=== PATIENT | male | born 1970 | race Caucasian/White ===

== ENCOUNTER → 2021-07-08 | Outpatient (CLI) | payer OTHER ==
[~2021-07-08] MED LIST: BARIUM SULFATE 60% 355 ML SUSP PO ONE; BARIUM SULFATE 98% 135 ML SUSP PO ONE
--- NOTE | 2021-07-08 11:30 | RAD ---
Single contrast Upper GI study 07/08/2021 CLINICAL HISTORY: History of hiatal hernia. Regurgitation. TECHNIQUE: A single contrast upper GI study was performed under fluoroscopic control. A single contra st study was performed due to the patient's limited mobility. The total fluoroscopic time for this st udy is 2.9 minutes. 9 digital spot radiographs were obtained. FINDINGS: Two AP supine digital radiographs abdomen/pelvis were obtained as [facility] radiographs. These demonstrate a moderate amount of stool throughout the colon. The abdominal bowel gas pattern is nonob structive. No radiopaque calculus is seen. Very mild S-shaped curvature of the thoracolumbar spine is seen. Degenerative changes are seen involving lower thoracic and throughout the lumbar spine. The mucosal pattern of the esophagus, stomach and duodenum is within normal limits. No area of ulcera tion is seen. Tertiary contractions of esophagus are seen consistent with moderate dysmotility. There is a moderate sized sliding hiatal hernia. Moderate to severe gastroesophageal reflux is seen to the level of the upper thoracic esophagus. IMPRESSION: 1. Moderate esophageal dysmotility. 2. Moderate-sized sliding hiatal hernia. Moderate to severe gastroesophageal reflux. Electronically signed by: Xavier Palencia MD (07/08/2021 11:28 AM) [id number]
== END ==
LOC: DXRAD 09:01
PROVIDERS: ATTEND Internal Medicine Gastroenterology
DX: K21.9 Gastro-esophageal reflux disease without esophagitis (principal); K44.9 Diaphragmatic hernia without obstruction or gangrene; R11.10 Vomiting, unspecified
CPT/HCPCS: 74240

== ENCOUNTER 2021-07-17 19:38 | Emergency (ER) | payer OTHER ==
[~2021-07-17] VITALS: Ht 170.2 cm; Wt 88.0 kg
[2021-07-17] MEDS ORDERED: 0.9 % SODIUM CHLORIDE 10 ML DISP.SYRIN. IV PRN (20:15)
--- NOTE | 2021-07-17 20:22 | PHYS DOC ---
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 Dad states patient called and reportedly had a subjective fever today and had fallen. Dad reports when he got patients home patient had passed out. Both dad and patient are poor historians. Dad states Patient had upper GI series done by Dr. Green last week and was noted to have a hiatal hernia and they were referred to a general surgeon. Patient reports nausea and vomiting today though father states patient has chronic nausea and vomiting from gastroparesis. Patient reports receiving Moderna covid vaccines. Dad states patient was at a wedding a week ago in [facility] [place] (DANII BECKMAN APRN) Review of Systems Review of Systems Constitutional: reports fever Eyes: Denies change in visual acuity, redness, or eye pain [] HENT: Denies nasal congestion or sore throat [] Respiratory: Denies cough or shortness of breath [] Cardiovascular: No additional information not addressed in HPI [] GI: Reports abdominal pain, nausea, vomiting, denies bloody stools or diarrhea [] : Denies dysuria or hematuria [] Musculoskeletal: Reports falling, Denies back pain or joint pain [] Integument: Denies rash or skin lesions [] Neurologic: Denies headache, focal weakness or sensory changes [] All other systems were reviewed and found to be within normal limits, except as documented in this note. (DANII BECKMAN APRN) Allergies Allergies Allergies Coded Allergies Type Severity Reaction Last Updated Verified No Known Drug Allergies 07/08/21 No (DANII BECKMAN APRN) Physical Exam Physical Exam Constitutional: Patient appears ill HENT: Normocephalic, atraumatic, bilateral external ears normal, oropharynx moist, no oral exudates, nose normal. [] Eyes: PERRLA, EOMI, conjunctiva normal, no discharge. [] Neck: Normal range of motion, no tenderness, supple, no stridor. [] Cardiovascular: Tachycardic, diaphoretic Lungs & Thorax: Bilateral breath sounds clear to auscultation [] Abdomen: Bowel sounds normal, soft, diffuse tenderness throughout the abdomen, no masses, no pulsatile masses. [] Skin: Right scapula with a bruise, right helix with laceration approx. 1 cm Back: No tenderness, no CVA tenderness. [] Extremities: No tenderness, no cyanosis, no clubbing, ROM intact, no edema. [] Neurologic: Alert and oriented X 3, normal motor function, normal sensory function, no focal deficits noted. Cranial nerves II through XII intact Psychologic: Affect normal, judgement normal, mood normal. [] (DANII BECKMAN APRN) EKG EKG [address] Lopez sinus tachycardia HR 120 no STEMI[] (DANII BECKMAN APRN) Radiology/Procedures Radiology/Procedures []PROCEDURE: PORTABLE CHEST 1V XR CHEST 1V Clinical History: Reason: fever / Spl. Instructions: / History: Technique: AP view of the chest was obtained at 07/17/2021 8:21 PM. Comparison: None. Findings: The cardiomediastinal silhouette is normal. The pulmonary vasculature is normal. The lungs and pleural margins are clear. Impression: No evidence of an acute cardiopulmonary process. Electronically signed by: Najma Gonsalves III, MD (07/17/2021 9:09 PM) [facility] DICTATED AND SIGNED BY: NAJMA GONSALVES III, MD DATE: 07/17/212108 CC: JACQUIE LOPEZ MD; ROSE QUINTANA MD; DANII BECKMAN APRN ~MTH0 0 PROCEDURE: CT HEAD AND CERVICAL SPINE WO CT Head W/O Contrast: History: Pain status post fall Comparison: none Axial images were obtained without contrast. The nicholson and white matter appears normal and symmetrical for the patients age. There is no mass effect, extraaxial fluid collections or hydrocephalus. There i s no gross bleed. There is no focal loss of nicholson-white matter distinction to suggest acute ischemia, i.e. stroke. Impression: No acute findings. End impression CT C-Spine without contrast: Clinical History: Reason: fall / Spl. Instructions: / History: Technique: Axial helical images of the cervical spine were obtained without contrast, axial coronal and sagittal reconstruction was performed. Findings: There is no loss of vertebral body stature. There is no prevertebral soft tissue swelling. The vertebral bodies are well aligned. The C1-C2 relationship is normal. The visualized osseous structures appear normal. Evaluation of the central canal is limited without contrast. There is multiple posterior disc bulges resulting in flattening of the thecal sac. There does not appear to be gross flattening of the cervical cord. There is moderate narrowing of multiple neuroforamen. Impression: No acute findings. Clinical correlation suggested. PQRS Compliance Statement: One or more of the following individualized dose reduction techniques were utilized for this examination: 1. Automated exposure control 2. Adjustment of the mA and/or kV according to patient size 3. Use of iterative reconstruction technique Electronically signed by: Najma Gonsalves III, MD (07/17/2021 8:56 PM) [facility] DICTATED AND SIGNED BY: NAJMA GONSALVES III, MD DATE: 07/17/212046 CC: JACQUIE LOPEZ MD; ROSE QUINTANA MD; DANII BECKMAN APRN ~MTH0 0 (DANII BECKMAN APRN) Heart Score C/O Chest Pain: N/A Risk Factors: Risk Factors: DM, Current or recent (<one month) smoker, HTN, HLP, family history of CAD, obesity. Risk Scores: Risk Factors: DM, Current or recent (<one month) smoker, HTN, HLP, family history of CAD, obesity. (DANII BECKMAN APRN) Course & Med Decision Making Course & Med Decision Making Pertinent Labs and Imaging studies reviewed. (See chart for details) This is an ill-appearing 50-year-old male patient who presents to the ED today with father, father states patient had a subjective fever and also fell down today. Father states when he got to patient's house patient was " passed out" Patient is tachycardic on arrival to the ED with heart rate in the low 120s. Also noted to be diaphoretic and hypoxic. 2200 care transferred to (DANII BECKMAN APRN) Course & Med Decision Making Patient care handed off to me at checkout pending work-up. Patient appears ill. Vital signs notable for tachycardia, tachypnea and and in need of 2 L nasal cannula to bring oxygen saturations around 95%. Laboratory analysis notable for neutrophilic leukocytosis, elevated creatinine and elevated lactate. Continued on IV fluid resuscitation, started on broad-spectrum antibiotics after discussing possible etiology of discitis with pharmacy giving Levaquin and vancomycin. Discussed all findings with family and recommended admission however [facility] without beds and family stated they would like to be admitted to [facility]. 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 (JACQUIE LOPEZ MD) Dragon Disclaimer Dragon Disclaimer This electronic medical record was generated, in whole or in part, using a voice recognition dictation system. (DANII BECKMAN APRN) Departure Departure: Impression: Primary Impression: Fever Additional Impressions: Tachycardia Sepsis Discitis Compression fracture Disposition: 02 [facility]ORT TERM [facility]OSPITAL Condition: STABLE Referrals: ROSE QUINTANA MD (PCP) Problem Qualifiers DANII BECKMAN APRN Jul 17, 2021 20:22 JACQUIE LOPEZ MD Jul 17, 2021 23:57
[2021-07-17] MEDS ORDERED: IV NORMAL SALINE 1,000ML 1,000 ML IV ONE ×3 (20:30→21:45)
[2021-07-17] MEDS ORDERED: ACETAMINOPHEN 500 MG TABLET PO ONE (20:30)
[2021-07-17] MEDS ORDERED: ONDANSETRON PF 4 MG/2 ML VIAL. IVP ONE (20:45)
[2021-07-17 20:52] LABS: HEMATOCRIT 41.1 % (39.0-53.0); HEMOGLOBIN 13.6 g/dL (13.0-17.5); LYMPH % 8 % (24-48); MEAN CORPUSCULAR HEMOGLOBIN 30 pg (25-35); MEAN CORPUSCULAR HGB CONC 33 g/dL (31-37); MEAN CORPUSCULAR VOLUME 91 fL (79-100); MONO % 7 % (0-9); NEUT % 85 % (31-73); PLATELET COUNT 306 x10^3/uL (140-400); RED BLOOD COUNT 4.51 x10^6/uL (4.30-5.70); RED CELL DISTRIBUTION WIDTH 13.3 % (11.5-14.5)
[2021-07-17 20:53] LABS: BASO % 0 % (0-3); EOS # 0.1 x10^3/uL (0.0-0.7); EOS % 0 % (0-3); LYMPH # 1.2 x10^3/uL (1.0-4.8); NEUT # 12.7 x10^3uL (1.8-7.7)
--- NOTE | 2021-07-17 20:58 | RAD ---
CT Head W/O Contrast: History: Pain status post fall Comparison: none Axial images were obtained without contrast. The nicholson and white matter appears normal and symmetrical for the patients age. There is no mass effe ct, extraaxial fluid collections or hydrocephalus. There is no gross bleed. There is no focal loss of nicholson-white matter distinction to suggest acute ischemia, i.e. stroke. Impression: No acute findings. End impression CT C-Spine without contrast: Clinical History: Reason: fall / Spl. Instructions: / History: Technique: Axial helical images of the cervical spine were obtained without contrast, axial coronal and sagittal reconstruction was performed. Findings: There is no loss of vertebral body stature. There is no prevertebral soft tissue swelling. The vert ebral bodies are well aligned. The C1-C2 relationship is normal. The visualized osseous structures a ppear normal. Evaluation of the central canal is limited without contrast. There is multiple posterio r disc bulges resulting in flattening of the thecal sac. There does not appear to be gross flattening of the cervical cord. There is moderate narrowing of multiple neuroforamen. Impression: No acute findings. Clinical correlation suggested. PQRS Compliance Statement: One or more of the following individualized dose reduction techniques were utilized for this examinat ion: 1. Automated exposure control 2. Adjustment of the mA and/or kV according to patient size 3. Use of iterative reconstruction technique Electronically signed by: Keith Carlin III, MD (07/17/2021 8:56 PM) [facility]
[2021-07-17 20:59] LABS: CALCIUM 9.5 mg/dL (8.5-10.1); CREATININE 1.9 mg/dL (0.7-1.3); GFR 37.7; POTASSIUM 4.6 mmol/L (3.5-5.1)
[2021-07-17 21:05] LABS: ALBUMIN 4.3 g/dL (3.4-5.0); ALBUMIN/GLOBULIN RATIO 1.1 (1.0-1.7); MAGNESIUM 2.1 mg/dL (1.8-2.4); TOTAL BILIRUBIN 0.4 mg/dL (0.2-1.0); TOTAL PROTEIN 8.1 g/dL (6.4-8.2)
--- NOTE | 2021-07-17 21:12 | RAD ---
XR CHEST 1V Clinical History: Reason: fever / Spl. Instructions: / History: Technique: AP view of the chest was obtained at 07/17/2021 8:21 PM. Comparison: None. Findings: The cardiomediastinal silhouette is normal. The pulmonary vasculature is normal. The lungs and pleura l margins are clear. Impression: No evidence of an acute cardiopulmonary process. Electronically signed by: Keith Carlin III, MD (07/17/2021 9:09 PM) [facility]
[2021-07-17] MEDS ORDERED: IOHEXOL 300 MG/ML 75 ML VIAL. IV ONE (21:30)
--- NOTE | 2021-07-17 22:17 | RAD ---
CT chest abdomen and pelvis without contrast: History: Fever or abdominal pain nausea and vomiting Axial helical images of the chest, abdomen and pelvis were obtained without IV contrast. Comparison: none CT chest without contrast: There is no mediastinal lymphadenopathy or hematoma. There is no hilar lymphadenopathy. There is a small hiatal hernia. There is air and fluid in the esophagus which is mildly dilated. Ther e are calcified granuloma in the mediastinum and left hilum. Impression: Hiatal hernia and gastroesophageal reflux. End Impression CT ABDOMEN and pelvis without IV CONTRAST: Findings: There is loss of intervertebral disc material at T12-L1 and there is impaction of the superior endpla te of L1 with moderate loss of stature centrally to approximately 60 percent. Similarly there is disc ogenic disease at L4-L5. There is fat-containing inguinal canal hernias. There is formed stool scattered throughout the colon. There is a stone in the gallbladder but no wall thickening surrounding inflammation. There is evidence of prior appendectomy. Liver: Unremarkable Spleen: Unremarkable Pancreas: Unremarkable Adrenal Glands: Unremarkable Kidneys: Unremarkable Evaluation of stomach and bowel is limited without oral contrast. Evaluation of solid organs is limit ed without IV contrast. There is no mass or lymphadenopathy. There is no free air. There is no free fluid. The bladder appears normal. Impression: 1. Constipation. 2. Cholelithiasis without acute cholecystitis. 3. Discogenic disease at T12-L1. There is loss of stature of the L1 vertebral body due to endplate ch anges and discitis and osteophytosis are possible. Recommend correlation with white blood cell count and sedimentation rate. End impression PQRS Compliance Statement: One or more of the following individualized dose reduction techniques were utilized for this examinat ion: 1. Automated exposure control 2. Adjustment of the mA and/or kV according to patient size 3. Use of iterative reconstruction technique Electronically signed by: Keith Carlin III, MD (07/17/2021 10:15 PM) [facility]
[2021-07-17] MEDS ORDERED: IV RINGERS SOLUTION,LACTATED 1,000 ML IV ONE (22:30)
[2021-07-17] MEDS ORDERED: METOCLOPRAMIDE HCL 10 MG/2 ML VIAL. IVP ONE (22:30)
[2021-07-17 22:31] LABS: INFLUENZA A PATIENT NEGATIVE (NEGATIVE); INFLUENZA B PATIENT NEGATIVE (NEGATIVE)
[2021-07-17] MEDS ORDERED: MORPHINE SULFATE 4 MG/ML DISP.SYRIN. IV ONE (23:00)
[2021-07-18] MEDS ORDERED: IV RINGERS SOLUTION,LACTATED 1,000 ML IV ONE
[2021-07-18] MEDS ORDERED: VANCOMYCIN 1.5 GM in IV NORMAL SALINE 500ML 500 ML IV ONE (00:15)
[2021-07-18] MEDS ORDERED: IV NORMAL SALINE 500ML 500 ML ONE (00:17)
[2021-07-18] MEDS ORDERED: VANCOMYCIN 1 GM VIAL. ONE (00:18)
[2021-07-18 00:23] LABS: CALCIUM 8.3 mg/dL (8.5-10.1); CREATININE 1.8 mg/dL (0.7-1.3); GFR 40.1; POTASSIUM 4.2 mmol/L (3.5-5.1)
[2021-07-18 00:28] LABS: BACTERIA,URINE FEW /HPF (0-FEW); BILIRUBIN,URINE NEG (NEG); CLARITY,URINE CLEAR; COLOR,URINE YELLOW; GLUCOSE,URINE NEG (NEG); NITRITE,URINE NEG (NEG); RBC,URINE 0 /HPF (0-2); SQUAMOUS EPITHELIAL CELL,UR OCC /LPF; UROBILINOGEN,URINE 0.2 mg/dL (0.2 mg/dL)
[2021-07-18] MEDS ORDERED: KETOROLAC 15 MG/ML VIAL. ONE (01:30)
[2021-07-18] MEDS ORDERED: KETOROLAC 15 MG/ML VIAL. IVP ONE (01:45)
[2021-07-18] MEDS ORDERED: MORPHINE SULFATE 4 MG/ML DISP.SYRIN. IV ONE ×2 (01:45)
--- NOTE | 2021-07-18 06:12 | EKG ---
[address] [address] Test Date: 2021-07-17 Test Time: 20:41:22 Pat Name: NAJMA MORENO Department: Room: Gender: M [employer] Driver: PHIL : [id number] Requested By: DANII BECKMAN Order Number: [id number] Reading MD: Aneesh Ramírez Measurements Intervals Amigo Rate: 120 P: 37 PA: 150 QRS: 10 QRSD: 86 T: 8 QT: 306 QTc: 437 Interpretive Statements SINUS TACHYCARDIA Electronically Signed On 07-25-2021 10:56:51 [employer] by Aneesh Ramírze
[2021-07-21 02:15] VITALS: BP 126/60
[2021-07-24] MEDS ORDERED: TRAZ150T49 PO (06:00)
[2021-07-24] MEDS ORDERED: PANT40TA3 PO (06:00)
[2021-07-24] MEDS ORDERED: PREG150C PO (06:00)
[2021-07-24] MEDS ORDERED: BUPR300T92 PO (06:00)
[2021-07-24] MEDS ORDERED: FENO145T3 PO (06:01)
== END 2021-07-18 02:37 | disposition short-term general hospital (02) ==
LOC: ER 19:38
DX: S42.101A Fracture of unspecified part of scapula, right shoulder, initial encounter for closed fracture (principal); S01.311A Laceration without foreign body of right ear, initial encounter; A41.9 Sepsis, unspecified organism; R29.6 Repeated falls; Z20.822 Contact with and (suspected) exposure to COVID-19; W18.39XA Other fall on same level, initial encounter; Y93.89 Activity, other specified; Y92.89 Other specified places as the place of occurrence of the external cause; Y99.8 Other external cause status
CPT/HCPCS: 36415; 70450; 71045; 71250; 72125; 74176; 80048; 80053; 81001; 82803; 83605; 83690; 83735; 84484; 85025; 85651; 86140; 87040; 87426; 87804; 93005; 96361; 96365; 96366; 96367; 96375; 96376; 99285; C9803; J1885; J1956; J2270; J2405; J2765; J3370; J7030; J7040; J7120; U0003